=== PATIENT | female | born 1960 | race Hispanic/Latino ===

== ENCOUNTER 2017-04-08 06:20 | Day surgery (SDC) | payer OTHER ==
[~2017-04-08 06:20] MED LIST: DIPRIVAN 10 MG/ML IV ONE
[2017-04-08] MEDS ORDERED: WATER FOR IRRIG STERILE IR ONE (07:26)
[2017-04-08] MEDS: NACL 0.9% 1000 ML 1,000 ML IV SCH ×2 (07:32→08:23)
[2017-04-08] MEDS ORDERED: DIPRIVAN 10 MG/ML IV ONE ×2 (07:41)
--- NOTE | 2017-04-08 07:49 | Discharge Summary ---
Providers - Providers Attending physician: JAYLON MICHAEL Primary care physician: REX HSAH Hospitalization Procedures: EGD Hospital course: 57 y.o. F underwent EGD in the endoscopy area. She tolerated the procedure well. She was discharged the same day. Disposition: DC-01 TO HOME OR SELFCARE Core Measure Documentation - Palliative Care Palliative Care/ Comfort Measures: Not Applicable - Core Measures Any of the following diagnoses?: none Exam - Physical Exam Narrative exam: no change from prior - Constitutional Vitals: Temp Pulse Resp BP Pulse Ox 98.3 F 73 15 140/77 98 04/08/17 07:24 04/08/17 07:24 04/08/17 07:24 04/08/17 07:24 04/08/17 07:24 Plan Follow up with: REX SHAH MD [Primary Care Provider] - 7 Days
--- NOTE | 2017-04-08 07:58 | Operative Report ---
Operative Report Operative Report: OPERATIVE REPORT - EGD DATE 04/08/17 SURGERY: Upper endoscopy. SURGEON: Aishwarya Redmond M.D. PROJECT ENGINEER CHEMICALS: Stefan Mcclain DO PRE OP DX: dyspepsia POST OP DX: polyp at GE junction, small hiatal hernia, gastritis TYPE OF ANESTHESIA: MAC. ESTIMATED BLOOD LOSS: None. COMPLICATIONS: None. SPECIMENS REMOVED: None. FINDINGS: 1. Small hiatal hernia. 2. Polyp at GE junction, gastritis INDICATIONS:INDICATION FOR PROCEDURE: Patient is a 57year-old female with a long history of morbid obesity. She is planned to have a weight loss procedure and is here for preoperative planning EGD. PROCEDURE DETAILS: After consent was reviewed, patient was taken back to the operating room where patient was placed in the left lateral decubitus position and a bite block was placed in the mouth. After a time-out was called, MAC anesthesia was initiated. I then passed the endoscope into her oropharynx, into her esophagus, visualized the entire esophagus, which showed a polyp at the distal esophagus that was biopsied. I then visualized the stomach and the first portion of the duodenum. There was gastritis in the stomach. I then retroflexed the scope in the stomach and visualized the hiatus and I could see a small hiatal hernia. I then desufflated the stomach and removed the endoscope. Patient tolerated procedure well and was transferred to recovery room in good and stable condition.
--- NOTE | 2017-04-08 08:03 | Anesthesia Day of Surgery ---
Anesthesia Day of Surgery - Day of Surgery Patient Examined: Yes Patient H&P Reviewed: Yes Patient is NPO: Yes
--- NOTE | 2017-04-08 08:04 | Anesthesia Consultation ---
Anesthesia Consult and Med Hx Date of service: 04/08/17 - Airway Anesthetic Teeth Evaluation: Good ROM Head & Neck: Adequate Mental/Hyoid Distance: Adequate Mallampati Class: Class II Intubation Access Assessment: Probably Good - Pulmonary Exam CTA: Yes - Pre-Operative Health Status ASA Pre-Surgery Classification: ASA3 Proposed Anesthetic Plan: MAC - Pulmonary Hx Sleep Apnea: Yes - Cardiovascular System Hx Coronary Artery Disease: Yes (hi chol) - Other Systems Hx Obesity: Yes
[2017-04-08 08:21] VITALS: BP 131/75
== END 2017-04-08 06:21 | disposition home or self-care (01) ==
LOC: GIO 06:20
PROVIDERS: ATTEND Surgery
DX: K29.50 Unspecified chronic gastritis without bleeding (principal); K31.7 Polyp of stomach and duodenum; K44.9 Diaphragmatic hernia without obstruction or gangrene; I25.10 Atherosclerotic heart disease of native coronary artery without angina pectoris; E78.00 Pure hypercholesterolemia, unspecified; G47.30 Sleep apnea, unspecified; K21.9 Gastro-esophageal reflux disease without esophagitis; E66.01 Morbid (severe) obesity due to excess calories; Z68.38 Body mass index [BMI] 38.0-38.9, adult; Z90.49 Acquired absence of other specified parts of digestive tract; Z99.89 Dependence on other enabling machines and devices; Z98.890 Other specified postprocedural states
CPT/HCPCS: 43239; 88305; 88342; J2704; J7030